=== PATIENT | male | born 1985 ===

== ENCOUNTER 2023-03-19 17:11 | Inpatient (IN) | payer OTHER ==
[~2023-03-19 17:11] MED LIST: Iopamidol-370 76% 500 ML MDV (1 ML CHARGE) ONE
[2023-03-19] MEDS ORDERED: Piperacillin/Tazobactam 3.375 GM VIAL ONE (17:30)
[2023-03-19 17:39] LABS: #Basophils 0.1 thou/uL (0.0-0.2); #Monocytes 1.2 thou/uL (0.11-0.59); #Neutrophils 18.2 thou/uL (1.40-6.50); %Basophils 0.3 % (0.0-1.0); %Eosinophils 0.1 % (0.0-10.0); %Lymphocytes 16.3 % (21.0-51.0); %Monocytes 5.1 % (0.0-10.0); %Neutrophils 77.6 % (42.0-75.0); Hematocrit 41.1 % (42.0-52.0); Hemoglobin 14.4 g/dL (14.0-18.0); Mean Corpuscular Volume 94.1 fl (78.0-98.0); Mean Platelet Volume 8.8 fL (7.4-10.4); Platelet Count 275 10x3/uL (130-400); RBC Distribution Width 12.6 % (11.5-14.5); Red Blood Cell (RBC) Count 4.37 mill/uL (4.70-6.10); White Blood Cell (WBC) Count 23.5 10x3/uL (4.8-10.8)
[2023-03-19 17:46] LABS: Bacteria/HPF None Seen HPF (None Seen); Bilirubin Negative (Negative); Blood, Urine 3+ (Negative); CAUTI Indications for Culture Pelvic or flank pain; Clarity Turbid (Clear); Glucose, Urine (Dipstick) Greater than 1000 mg/dL (Negative); Ketone, Urine Negative (Negative); Leukocyte 25 Leu/uL (Negative); Nitrite Negative (Negative); Protein, Urine (Dipstick) 200 mg/dL (Neg-Trace); RBC/HPF Greater than 50 HPF (0-3); Specific Gravity, Urine 1.021 (1.002-1.036); Squamous Epithelial None Seen HPF (0-3); Urobilinogen Normal mg/dL (Less than 2)
[2023-03-19 17:48] LABS: Urine Culture Reflex No No
[2023-03-19 17:53] LABS: PTT 23.3 sec (22.9-36.1); Prothrombin Time 13.1 sec (12.0-14.7)
[2023-03-19] MEDS ORDERED: Ipratropium/Albuterol 3 ML NEB NEB PRN (17:59)
[2023-03-19] MEDS ORDERED: Morphine 2 MG/ML VIAL SLOW IVP PRN (17:59)
[2023-03-19] MEDS ORDERED: Ondansetron PF 4 MG/2 ML Vial IVP PRN ×3 (17:59→21:29)
[2023-03-19] MEDS ORDERED: Cyclobenzaprine 10 MG TAB PO PRN (18:03)
[2023-03-19] MEDS ORDERED: traMADol HCl 50 MG TAB PO PRN (18:03)
[2023-03-19 18:04] LABS: Acetaminophen Less than 10 mcg/mL (10.0-30.0); Alcohol 292.7 mg/dL (Less than 10); Salicylate Less than 8.0 mg/dL (15.0-30.0)
[2023-03-19 18:05] LABS: ALT (SGPT) 40 U/L (8-55); AST (SGOT) 57 U/L (5-34); Albumin 3.9 g/dL (3.5-5.0); Alkaline Phosphatase 82 U/L (40-110); Anion Gap 20 mmol/L (10-20); BUN (Urea Nitrogen) 18 mg/dL (8.9-20.6); Bilirubin, Total 0.3 mg/dL (0.2-1.2); Calc. Creatinine Clearance 0 mL/min (70-130); Calcium 8.2 mg/dL (7.8-10.44); Carbon Dioxide 20 mmol/L (22-29); Chloride 104 mmol/L (98-107); Estimated GFR 55; Globulin 2.9 g/dL (2.4-3.5); Glucose 152 mg/dL (70-105); Lipase 31 U/L (8-78); Potassium 4.8 mmol/L (3.5-5.1); Protein, Total 6.8 g/dL (6.0-8.3); Sodium 139 mmol/L (136-145)
[2023-03-19] MEDS ORDERED: fentaNYL 50 mcg/mL 1 mL Vial ONE ×5 (18:08→21:51)
[2023-03-19] MEDS ORDERED: SUGAMMADEX SODIUM 200 MG/2 ML VIAL ONE (18:25)
[2023-03-19] MEDS ORDERED: Famotidine/PF 20 mg/2ml Vial ONE (18:25)
[2023-03-19] MEDS ORDERED: NEOSTIGMINE 3 MG/3 ML SYR 3 MG/3 ML SYRINGE ONE (18:42)
[2023-03-19] MEDS ORDERED: PROPOFOL 200 MG/20 ML VIAL ONE (18:42)
[2023-03-19] MEDS ORDERED: Rocuronium Bromide 10 MG/ML (10ML VIAL) ONE (18:42)
[2023-03-19] MEDS ORDERED: Glycopyrrolate 0.2 MG/ML 5 ML SYRINGE ONE (18:42)
[2023-03-19] MEDS ORDERED: Ondansetron PF 4 MG/2 ML Vial ONE (18:42)
[2023-03-19] MEDS ORDERED: Succinylcholine 200 MG/10 ml SYRINGE FS ONE (18:42)
[2023-03-19] MEDS ORDERED: Ketorolac Tromethamine 30 MG/ML VIAL ONE (18:42)
[2023-03-19] MEDS ORDERED: Metoclopramide HCl 10 MG/2 ML VIAL ONE (18:42)
[2023-03-19] MEDS ORDERED: ePHEDrine Sulfate 50 MG/10 ML VIAL ONE (18:42)
[2023-03-19] MEDS ORDERED: Lidocaine 1% PF 5 ML VIAL ONE (18:42)
[2023-03-19] MEDS ORDERED: PHENYLEPHRINE-NS 100 MCG/ML 10 ML SYRINGE ONE (18:42)
[2023-03-19] MEDS ORDERED: Meperidine HCl/PF 25 MG/ML VIAL SLOW IVP PRN (20:59)
[2023-03-19] MEDS ORDERED: Ondansetron HCl/PF 4 MG/2 ML Vial IVP PRN (20:59)
[2023-03-19] MEDS ORDERED: PACU-Morphine 4MG/ML VIAL SLOW IVP PRN (20:59)
[2023-03-19] MEDS ORDERED: Promethazine HCl 25 MG/ML VIAL IM PRN ×3 (20:59→21:29)
[2023-03-19] MEDS ORDERED: diphenhydrAMINE 50 MG/ML VIAL IM PRN ×2 (21:27→21:29)
[2023-03-19] MEDS ORDERED: Naloxone HCl 0.4 mg/ml Vial IV PRN ×2 (21:27→21:29)
[2023-03-19] MEDS ORDERED: HYDROmorphone 10 mg/100 ml CADD IVPB PRN (21:27)
[2023-03-19] MEDS ORDERED: diphenhydrAMINE 25 MG CAP PO PRN (21:29)
[2023-03-19] MEDS ORDERED: FENTANYL 500 MCG/10 ML VIAL 2,000 MCG in Sodium Chloride 0.9% 60 ML IV PRN (21:29)
[2023-03-19] MEDS ORDERED: Communication Order-Pharmacy FS SCH ×2 (21:30)
[2023-03-19] MEDS ORDERED: traMADol HCl 50 MG TAB PO SCH (22:00)
[2023-03-19] MEDS: Acetaminophen 500 MG TAB PO SCH ×2 (23:06→23:14)
[2023-03-19] MEDS: Sodium Chloride 0.9% 1,000 ML IV SCH (23:15)
[2023-03-19] MEDS: Senokot S 8.6-50 MG TAB PO SCH (23:18)
[2023-03-19 23:24] LABS: Lactic Acid 4.1 mmol/L (0.5-2.2)
[2023-03-20 00:25] LABS: Amphetamine Not Detected (NotDetected); Barbiturates Screen Not Detected (NotDetected); Benzodiazepine Screen Not Detected (NotDetected); Cocaine Metabolite Screen Not Detected (NotDetected); Methadone Not Detected (NotDetected); Methamphetamine Not Detected (NotDetected); Opiate Screen Not Detected (NotDetected); Oxycodone Screen Not Detected (NotDetected); Phencyclidine (PCP) Not Detected (NotDetected); THC/Cannabinoid Screen Not Detected (NotDetected); Tricyclic Screen Not Detected (NotDetected)
[2023-03-20] MEDS: Zolpidem Tartrate 5 MG TAB PO PRN ×2 (00:50→20:13)
[2023-03-20 04:16] LABS: #Monocytes 1.3 thou/uL (0.11-0.59); #Neutrophils 8.6 thou/uL (1.40-6.50); %Basophils 0.2 % (0.0-1.0); %Lymphocytes 11.9 % (21.0-51.0); %Monocytes 11.3 % (0.0-10.0); %Neutrophils 76.2 % (42.0-75.0); Hematocrit 38.2 % (42.0-52.0); Hemoglobin 13.4 g/dL (14.0-18.0); Mean Corpuscular HGB CONC 35.1 g/dL (32.0-36.0); Mean Corpuscular Hemoglobin 32.9 pg (27.0-31.0); Mean Corpuscular Volume 93.9 fl (78.0-98.0); Mean Platelet Volume 9.2 fL (7.4-10.4); RBC Distribution Width 13.1 % (11.5-14.5); Red Blood Cell (RBC) Count 4.07 mill/uL (4.70-6.10)
[2023-03-20 04:17] LABS: Platelet Count 155 10x3/uL (130-400)
[2023-03-20 04:18] LABS: White Blood Cell (WBC) Count 11.3 10x3/uL (4.8-10.8)
[2023-03-20 05:16] LABS: Phosphorus 2.9 mg/dL (2.3-4.7)
[2023-03-20 05:18] LABS: Anion Gap 18 mmol/L (10-20); BUN (Urea Nitrogen) 13 mg/dL (8.9-20.6); Calc. Creatinine Clearance 123 mL/min (70-130); Calcium 7.9 mg/dL (7.8-10.44); Carbon Dioxide 15 mmol/L (22-29); Chloride 109 mmol/L (98-107); Estimated GFR 86; Glucose 133 mg/dL (70-105); Magnesium 1.8 mg/dL (1.6-2.6); Potassium 4.4 mmol/L (3.5-5.1); Sodium 138 mmol/L (136-145)
[2023-03-20] MEDS: Acetaminophen 500 MG TAB PO SCH ×4 (07:39→23:13)
[2023-03-20] MEDS: Sodium Chloride 0.9% 1,000 ML IV SCH ×2 (07:39→13:44)
[2023-03-20] MEDS ORDERED: Meperidine HCl/PF 25 MG/ML VIAL SLOW IVP SCH (08:45)
[2023-03-20] MEDS: Famotidine 20 MG TAB PO SCH (09:55)
[2023-03-20] MEDS: Senokot S 8.6-50 MG TAB PO SCH ×2 (09:55→20:32)
[2023-03-20] MEDS: Polyethylene Glycol 3350 17 GM Packet PO SCH (09:55)
[2023-03-20] MEDS: Empagliflozin 10 MG TAB PO SCH (09:55)
[2023-03-20] MEDS: Sacubitril 24MG/Valsartan 26 MG TAB PO SCH ×2 (09:55→20:13)
[2023-03-20] MEDS ORDERED: Sodium Chloride 0.9% 500 ML IV SCH (11:45)
[2023-03-20] MEDS ORDERED: CEFAZOLIN 2 GM in Sodium Chloride 0.9% 100 ML IVPB SCH (12:00)
[2023-03-20] MEDS ORDERED: CEFAZOLIN 2 GM VIAL ONE (12:51)
[2023-03-20] MEDS ORDERED: Sodium Chloride 0.9% 100 ML ONE (12:51)
[2023-03-20] MEDS ORDERED: Fentanyl 250 MCG/5 ML VIAL ONE (14:31)
[2023-03-20] MEDS ORDERED: Midazolam HCl 2 mg/2 ml Vial ONE (14:31)
[2023-03-20] MEDS ORDERED: Ondansetron PF 4 MG/2 ML Vial ONE (15:12)
[2023-03-20] MEDS ORDERED: PROPOFOL 200 MG/20 ML VIAL ONE (15:12)
[2023-03-20] MEDS ORDERED: Ondansetron HCl/PF 4 MG/2 ML Vial IVP PRN (15:41)
[2023-03-20] MEDS ORDERED: HYDROmorphone 2 MG/ML VIAL SLOW IVP PRN (15:41)
[2023-03-20] MEDS ORDERED: Promethazine HCl 25 MG/ML VIAL IM PRN (15:41)
[2023-03-20] MEDS ORDERED: FENTANYL 500 MCG/10 ML VIAL 2,000 MCG in Sodium Chloride 0.9% 60 ML IV PRN (16:19)
[2023-03-20] MEDS: Fentanyl CADD 100 ML IVPB SCH (19:59)
[2023-03-20] MEDS: Metoprolol Tartrate 25 MG TAB PO SCH (21:19)
[2023-03-21] MEDS: Sodium Chloride 0.9% 1,000 ML IV SCH ×4 (01:00→20:30)
[2023-03-21] MEDS: Lorazepam 2 MG/ML VIAL SLOW IVP SCH ×2 (01:53→05:25)
[2023-03-21] MEDS ORDERED: Dexmedetomidine 400 MCG, Admixture Fee 1 EACH in Sodium Chloride 0.9% 96 ML IVPB SCH (03:15)
[2023-03-21 04:09] LABS: #Neutrophils 8.7 thou/uL (1.40-6.50); %Basophils 0.3 % (0.0-1.0); %Eosinophils 0.1 % (0.0-10.0); %Lymphocytes 13.5 % (21.0-51.0); %Monocytes 8.4 % (0.0-10.0); %Neutrophils 77.2 % (42.0-75.0); Hematocrit 30.7 % (42.0-52.0); Mean Corpuscular HGB CONC 33.6 g/dL (32.0-36.0); Mean Platelet Volume 9.5 fL (7.4-10.4); Platelet Count 150 10x3/uL (130-400); RBC Distribution Width 13.1 % (11.5-14.5); Red Blood Cell (RBC) Count 3.12 mill/uL (4.70-6.10); White Blood Cell (WBC) Count 11.3 10x3/uL (4.8-10.8)
[2023-03-21 04:25] LABS: Hemoglobin 10.3 g/dL (14.0-18.0); Mean Corpuscular Volume 98.4 fl (78.0-98.0)
[2023-03-21 04:32] LABS: Anion Gap 16 mmol/L (10-20); BUN (Urea Nitrogen) 11 mg/dL (8.9-20.6); Calc. Creatinine Clearance 132 mL/min (70-130); Calcium 7.9 mg/dL (7.8-10.44); Carbon Dioxide 19 mmol/L (22-29); Chloride 103 mmol/L (98-107); Estimated GFR 94; Glucose 128 mg/dL (70-105); Sodium 134 mmol/L (136-145)
[2023-03-21] MEDS ORDERED: Haloperidol Lactate 5 MG/ML VIAL IM SCH (05:30)
[2023-03-21] MEDS: Acetaminophen 500 MG TAB PO SCH ×3 (06:00→17:54)
[2023-03-21] MEDS: Oxazepam 10 MG CAP PO SCH ×3 (06:45→21:35)
[2023-03-21] MEDS ORDERED: Lorazepam 2 MG/ML VIAL IM PRN (07:04)
[2023-03-21] MEDS ORDERED: Lorazepam 1 MG TAB PO PRN (07:04)
[2023-03-21] MEDS: Famotidine 20 MG TAB PO SCH (09:20)
[2023-03-21] MEDS: Folic Acid 1 MG TAB PO SCH (09:20)
[2023-03-21] MEDS: Empagliflozin 10 MG TAB PO SCH (09:20)
[2023-03-21] MEDS: Senokot S 8.6-50 MG TAB PO SCH ×2 (09:20→20:32)
[2023-03-21] MEDS: Lorazepam 1 MG TAB PO SCH ×3 (09:20→20:31)
[2023-03-21] MEDS: Polyethylene Glycol 3350 17 GM Packet PO SCH (09:20)
[2023-03-21] MEDS: Multivit, Therapeutic 1 TAB PO SCH (09:21)
[2023-03-21] MEDS: Sacubitril 24MG/Valsartan 26 MG TAB PO SCH ×2 (09:21→21:36)
[2023-03-21] MEDS: Thiamine 100 MG TAB PO SCH (09:21)
[2023-03-21] MEDS: Metoprolol Tartrate 25 MG TAB PO SCH ×2 (09:21→20:32)
[2023-03-22] MEDS: Acetaminophen 500 MG TAB PO SCH ×4 (00:46→15:45)
[2023-03-22] MEDS: Lorazepam 1 MG TAB PO SCH ×3 (00:48→14:25)
[2023-03-22] MEDS: Fentanyl CADD 100 ML IVPB SCH (05:22)
[2023-03-22] MEDS: Sodium Chloride 0.9% 1,000 ML IV SCH (05:40)
[2023-03-22] MEDS: Oxazepam 10 MG CAP PO SCH ×2 (05:49→21:22)
[2023-03-22] MEDS ORDERED: Lorazepam 1 MG TAB PO PRN (07:04)
[2023-03-22 08:13] LABS: #Basophils 0.1 thou/uL (0.0-0.2); #Monocytes 0.7 thou/uL (0.11-0.59); #Neutrophils 9.8 thou/uL (1.40-6.50); %Basophils 0.4 % (0.0-1.0); %Eosinophils 0.1 % (0.0-10.0); %Lymphocytes 6.6 % (21.0-51.0); %Monocytes 6.3 % (0.0-10.0); %Neutrophils 85.7 % (42.0-75.0); Hematocrit 28.1 % (42.0-52.0); Hemoglobin 9.1 g/dL (14.0-18.0); Mean Corpuscular HGB CONC 32.4 g/dL (32.0-36.0); Mean Corpuscular Hemoglobin 32.5 pg (27.0-31.0); Mean Corpuscular Volume 100.4 fl (78.0-98.0); Mean Platelet Volume 9.2 fL (7.4-10.4); Platelet Count 165 10x3/uL (130-400); RBC Distribution Width 13.2 % (11.5-14.5); White Blood Cell (WBC) Count 11.5 10x3/uL (4.8-10.8)
[2023-03-22 08:33] LABS: Anion Gap 24 mmol/L (10-20); BUN (Urea Nitrogen) 17 mg/dL (8.9-20.6); Calc. Creatinine Clearance 148 mL/min (70-130); Calcium 8.4 mg/dL (7.8-10.44); Carbon Dioxide 14 mmol/L (22-29); Chloride 104 mmol/L (98-107); Estimated GFR 108; Glucose 125 mg/dL (70-105); Potassium 4.2 mmol/L (3.5-5.1); Sodium 138 mmol/L (136-145)
[2023-03-22] MEDS ORDERED: Pantoprazole 40 MG VIAL IVP SCH (09:00)
[2023-03-22] MEDS ORDERED: Furosemide 40 MG/4 ML VIAL SLOW IVP SCH (10:00)
[2023-03-22] MEDS ORDERED: Lactated Ringer's 1,000 ML IV SCH (10:15)
[2023-03-22] MEDS: Pantoprazole 80 MG, Admixture Fee 1 EACH in Sodium Chloride 0.9% 100 ML IVPB SCH ×3 (11:07→21:25)
[2023-03-22 12:07] LABS: #Monocytes 0.8 thou/uL (0.11-0.59); #Neutrophils 10.7 thou/uL (1.40-6.50); %Basophils 0.3 % (0.0-1.0); %Lymphocytes 5.9 % (21.0-51.0); %Monocytes 6.1 % (0.0-10.0); %Neutrophils 86.7 % (42.0-75.0); Hematocrit 28.4 % (42.0-52.0); Hemoglobin 9.4 g/dL (14.0-18.0); Mean Corpuscular HGB CONC 33.1 g/dL (32.0-36.0); Mean Corpuscular Hemoglobin 33.3 pg (27.0-31.0); Mean Corpuscular Volume 100.7 fl (78.0-98.0); Mean Platelet Volume 9.4 fL (7.4-10.4); Platelet Count 185 10x3/uL (130-400); RBC Distribution Width 13.2 % (11.5-14.5); Red Blood Cell (RBC) Count 2.82 mill/uL (4.70-6.10); White Blood Cell (WBC) Count 12.4 10x3/uL (4.8-10.8)
[2023-03-22] MEDS ORDERED: Lorazepam 2 MG/ML VIAL SLOW IVP SCH (12:49)
[2023-03-22] MEDS: Empagliflozin 10 MG TAB PO SCH (13:03)
[2023-03-22] MEDS: Folic Acid 1 MG TAB PO SCH (13:03)
[2023-03-22] MEDS: Furosemide 40 MG TAB PO SCH (13:03)
[2023-03-22] MEDS: Polyethylene Glycol 3350 17 GM Packet PO SCH (13:04)
[2023-03-22] MEDS: Metoprolol Tartrate 25 MG TAB PO SCH ×2 (13:04→21:22)
[2023-03-22] MEDS: Sacubitril 24MG/Valsartan 26 MG TAB PO SCH ×2 (13:04→21:23)
[2023-03-22] MEDS: Spironolactone 25 MG TAB PO SCH (13:04)
[2023-03-22] MEDS: Multivit, Therapeutic 1 TAB PO SCH (13:04)
[2023-03-22] MEDS: Senokot S 8.6-50 MG TAB PO SCH ×2 (13:04→21:23)
[2023-03-22] MEDS: Thiamine 100 MG TAB PO SCH (13:05)
[2023-03-22] MEDS ORDERED: HYDROmorphone 0.5 MG/0.5 ML SYRINGE SLOW IVP SCH (14:15)
[2023-03-22] MEDS ORDERED: Labetalol HCl 100 MG/20 ML VIAL SLOW IVP PRN ×3 (14:20→16:25)
[2023-03-22] MEDS ORDERED: Metoprolol Tartrate 50 MG TAB PO SCH ×2 (15:30→21:00)
[2023-03-22] MEDS ORDERED: cloNIDine 0.3 MG TAB PO SCH ×3 (15:30→22:00)
[2023-03-22] MEDS: Lactated Ringer's 1,000 ML IV SCH ×2 (16:58→21:28)
[2023-03-22] MEDS ORDERED: Non-Formulary Item 1 EACH (Trazodone Hcl [Trazodone Hcl] 100 MG Tablet) PO SCH (21:00)
[2023-03-22] MEDS: cloNIDine 0.2 MG TAB PO SCH (21:21)
[2023-03-22] MEDS: traZODone HCl 50 MG TAB PO SCH (21:24)
[2023-03-22] MEDS: Zolpidem Tartrate 5 MG TAB PO PRN (21:24)
[2023-03-23] MEDS: Acetaminophen 500 MG TAB PO SCH ×4 (00:05→17:39)
[2023-03-23] MEDS: Fentanyl CADD 100 ML IVPB SCH (01:39)
[2023-03-23] MEDS: cloNIDine 0.2 MG TAB PO SCH ×4 (03:59→20:35)
[2023-03-23] MEDS: Oxazepam 10 MG CAP PO SCH ×3 (05:50→20:35)
[2023-03-23] MEDS ORDERED: Lorazepam 1 MG TAB PO PRN (07:04)
[2023-03-23] MEDS ORDERED: Lorazepam 0.5 MG TAB PO SCH (08:00)
[2023-03-23] MEDS: Folic Acid 1 MG TAB PO SCH (08:56)
[2023-03-23] MEDS: Empagliflozin 10 MG TAB PO SCH (08:56)
[2023-03-23] MEDS: Sacubitril 24MG/Valsartan 26 MG TAB PO SCH ×2 (08:57→20:36)
[2023-03-23] MEDS: Metoprolol Tartrate 25 MG TAB PO SCH ×2 (08:57→20:36)
[2023-03-23] MEDS: Senokot S 8.6-50 MG TAB PO SCH ×2 (08:57→20:37)
[2023-03-23] MEDS: Multivit, Therapeutic 1 TAB PO SCH (08:57)
[2023-03-23] MEDS: Spironolactone 25 MG TAB PO SCH (08:58)
[2023-03-23] MEDS: Thiamine 100 MG TAB PO SCH (08:58)
[2023-03-23] MEDS: Furosemide 40 MG TAB PO SCH (08:58)
[2023-03-23] MEDS: Polyethylene Glycol 3350 17 GM Packet PO SCH (08:58)
[2023-03-23] MEDS: Lactated Ringer's 1,000 ML IV SCH ×2 (08:59→15:53)
[2023-03-23] MEDS: Cyclobenzaprine 10 MG TAB PO SCH ×3 (09:00→20:36)
[2023-03-23 10:10] LABS: #Eosinphils 0.1 thou/uL (0.0-0.7); #Monocytes 0.7 thou/uL (0.11-0.59); #Neutrophils 5.2 thou/uL (1.40-6.50); %Basophils 0.4 % (0.0-1.0); %Eosinophils 1.6 % (0.0-10.0); %Lymphocytes 17.8 % (21.0-51.0); %Monocytes 9.8 % (0.0-10.0); %Neutrophils 69.7 % (42.0-75.0); Hematocrit 22.6 % (42.0-52.0); Hemoglobin 7.5 g/dL (14.0-18.0); Mean Corpuscular HGB CONC 33.2 g/dL (32.0-36.0); Mean Corpuscular Hemoglobin 32.9 pg (27.0-31.0); Mean Corpuscular Volume 99.1 fl (78.0-98.0); Mean Platelet Volume 9.1 fL (7.4-10.4); Platelet Count 155 10x3/uL (130-400); RBC Distribution Width 13.5 % (11.5-14.5); Red Blood Cell (RBC) Count 2.28 mill/uL (4.70-6.10); White Blood Cell (WBC) Count 7.4 10x3/uL (4.8-10.8)
[2023-03-23] MEDS ORDERED: Oxazepam 10 MG CAP PO SCH (10:15)
[2023-03-23 10:46] LABS: Anion Gap 15 mmol/L (10-20); BUN (Urea Nitrogen) 15 mg/dL (8.9-20.6); Calc. Creatinine Clearance 159 mL/min (70-130); Calcium 8.2 mg/dL (7.8-10.44); Carbon Dioxide 24 mmol/L (22-29); Chloride 104 mmol/L (98-107); Estimated GFR 113; Glucose 124 mg/dL (70-105); Magnesium 1.9 mg/dL (1.6-2.6); Potassium 3.6 mmol/L (3.5-5.1); Sodium 139 mmol/L (136-145)
[2023-03-23 11:06] LABS: Phosphorus 1.5 mg/dL (2.3-4.7)
[2023-03-23] MEDS: Pantoprazole 80 MG, Admixture Fee 1 EACH in Sodium Chloride 0.9% 100 ML IVPB SCH (12:08)
[2023-03-23] MEDS ORDERED: Electrolyte Replacement Protocol 1 EACH FS SCH (16:30)
[2023-03-23] MEDS ORDERED: Potassium Phosphate 22 MMOL in Sodium Chloride 0.9% 250 ML 250 ML IVPB SCH (16:45)
[2023-03-23] MEDS: traZODone HCl 50 MG TAB PO SCH (20:36)
[2023-03-24] MEDS ORDERED: Simethicone Chewable 80 MG TAB PO PRN (00:21)
[2023-03-24] MEDS ORDERED: CEFAZOLIN 2 GM in Sodium Chloride 0.9% 100 ML IVPB SCH (00:30)
[2023-03-24] MEDS: Acetaminophen 500 MG TAB PO SCH ×4 (01:02→18:44)
[2023-03-24] MEDS: Metoclopramide HCl 10 MG/2 ML VIAL IVP SCH ×4 (01:03→18:45)
[2023-03-24] MEDS: Fentanyl CADD 100 ML IVPB SCH (01:57)
[2023-03-24] MEDS: cloNIDine 0.2 MG TAB PO SCH ×4 (04:10→21:37)
[2023-03-24] MEDS: Oxazepam 10 MG CAP PO SCH ×3 (04:10→21:36)
[2023-03-24] MEDS: Lactated Ringer's 1,000 ML IV SCH ×2 (04:11→14:43)
[2023-03-24] MEDS ORDERED: Lorazepam 0.5 MG TAB PO PRN (07:04)
[2023-03-24 07:22] LABS: #Eosinphils 0.1 thou/uL (0.0-0.7); #Monocytes 0.9 thou/uL (0.11-0.59); #Neutrophils 5.8 thou/uL (1.40-6.50); %Basophils 0.5 % (0.0-1.0); %Lymphocytes 13.8 % (21.0-51.0); %Monocytes 10.9 % (0.0-10.0); %Neutrophils 71.8 % (42.0-75.0); Hematocrit 23.9 % (42.0-52.0); Mean Corpuscular HGB CONC 33.5 g/dL (32.0-36.0); Mean Corpuscular Hemoglobin 33.5 pg (27.0-31.0); Mean Platelet Volume 8.8 fL (7.4-10.4); Platelet Count 179 10x3/uL (130-400); RBC Distribution Width 13.9 % (11.5-14.5); Red Blood Cell (RBC) Count 2.39 mill/uL (4.70-6.10); White Blood Cell (WBC) Count 8.1 10x3/uL (4.8-10.8)
[2023-03-24 07:52] LABS: ALT (SGPT) 50 U/L (8-55); AST (SGOT) 40 U/L (5-34); Albumin 3.2 g/dL (3.5-5.0); Alkaline Phosphatase 65 U/L (40-110); Anion Gap 22 mmol/L (10-20); BUN (Urea Nitrogen) 10 mg/dL (8.9-20.6); Bilirubin, Total 0.5 mg/dL (0.2-1.2); Calc. Creatinine Clearance 194 mL/min (70-130); Calcium 8.5 mg/dL (7.8-10.44); Carbon Dioxide 20 mmol/L (22-29); Chloride 99 mmol/L (98-107); Estimated GFR 119; Globulin 2.7 g/dL (2.4-3.5); Glucose 109 mg/dL (70-105); Potassium 3.2 mmol/L (3.5-5.1); Protein, Total 5.9 g/dL (6.0-8.3); Sodium 138 mmol/L (136-145)
[2023-03-24] MEDS ORDERED: Magnesium 2 GM/50 ML(in water) 2 GM in Premix Bag 1 BAG IVPB SCH (08:00)
[2023-03-24] MEDS ORDERED: Potassium Chloride 20 MEQ TAB PO SCH (08:15)
[2023-03-24] MEDS: Cyclobenzaprine 10 MG TAB PO SCH ×3 (09:05→21:37)
[2023-03-24] MEDS: Folic Acid 1 MG TAB PO SCH (09:05)
[2023-03-24] MEDS: Empagliflozin 10 MG TAB PO SCH (09:05)
[2023-03-24] MEDS: Furosemide 40 MG TAB PO SCH (09:06)
[2023-03-24] MEDS: Polyethylene Glycol 3350 17 GM Packet PO SCH (09:07)
[2023-03-24] MEDS: Multivit, Therapeutic 1 TAB PO SCH (09:07)
[2023-03-24] MEDS: Sacubitril 24MG/Valsartan 26 MG TAB PO SCH ×2 (09:07→21:36)
[2023-03-24] MEDS: Metoprolol Tartrate 25 MG TAB PO SCH ×2 (09:07→21:36)
[2023-03-24] MEDS: Senokot S 8.6-50 MG TAB PO SCH ×2 (09:07→21:36)
[2023-03-24] MEDS: Pantoprazole 40 MG VIAL IVP SCH (09:07)
[2023-03-24] MEDS: Spironolactone 25 MG TAB PO SCH (09:08)
[2023-03-24] MEDS: Thiamine 100 MG TAB PO SCH (09:08)
[2023-03-24 09:09] LABS: Magnesium 1.8 mg/dL (1.6-2.6); Phosphorus 3.4 mg/dL (2.3-4.7)
[2023-03-24] MEDS ORDERED: Potassium Chloride 20 MEQ in Premix Bag 1 BAG IVPB SCH (10:45)
[2023-03-24] MEDS ORDERED: Bupivacaine PF 0.5% 30 ML VIAL ONE (13:18)
[2023-03-24] MEDS ORDERED: Thrombin 5000 UNITS/5 ML VIAL ONE (13:18)
[2023-03-24] MEDS ORDERED: Bacitracin Zinc Ointment 30 gm TUBE ONE (13:18)
[2023-03-24] MEDS ORDERED: CEFAZOLIN 2 GM VIAL ONE (13:39)
[2023-03-24] MEDS ORDERED: Sodium Chloride 0.9% 100 ML ONE (13:39)
[2023-03-24] MEDS ORDERED: Ropivacaine 0.5% HCl/PF (150 MG/30 ML VIAL) ONE (13:41)
[2023-03-24] MEDS ORDERED: Midazolam HCl 2 mg/2 ml Vial ONE ×3 (13:41→18:09)
[2023-03-24] MEDS ORDERED: fentaNYL 50 mcg/mL 1 mL Vial ONE (13:41)
[2023-03-24] MEDS ORDERED: fentaNYL PF 100 MCG/2 ML SYRINGE ONE (13:57)
[2023-03-24] MEDS ORDERED: Ketamine 50 MG/ML (10ML VIAL) ONE (13:57)
[2023-03-24] MEDS ORDERED: Dexamethasone 20 MG/5 ML VIAL ONE (14:23)
[2023-03-24] MEDS ORDERED: Lidocaine 1% PF 5 ML VIAL ONE (14:23)
[2023-03-24] MEDS ORDERED: PROPOFOL 200 MG/20 ML VIAL ONE (14:23)
[2023-03-24] MEDS ORDERED: Succinylcholine 200 MG/10 ml SYRINGE FS ONE (14:23)
[2023-03-24] MEDS ORDERED: PHENYLEPHRINE-NS 100 MCG/ML 10 ML SYRINGE ONE (14:23)
[2023-03-24] MEDS ORDERED: Metoprolol Tartrate 5 MG/5 ML VIAL ONE (14:23)
[2023-03-24] MEDS ORDERED: Ketorolac Tromethamine 30 MG/ML VIAL ONE (14:23)
[2023-03-24] MEDS ORDERED: Rocuronium Bromide 10 MG/ML (10ML VIAL) ONE (14:23)
[2023-03-24] MEDS ORDERED: Albuterol HFA (OR) 200 PUFF INH ONE (16:51)
[2023-03-24] MEDS ORDERED: Phenylephrine 10 MG/ML VIAL ONE (17:06)
[2023-03-24] MEDS ORDERED: SUGAMMADEX SODIUM 200 MG/2 ML VIAL ONE (17:17)
[2023-03-24] MEDS ORDERED: Ipratropium/Albuterol 3 ML NEB ONE (17:42)
[2023-03-24] MEDS ORDERED: Lorazepam 2 MG/ML VIAL SLOW IVP PRN (19:03)
[2023-03-24] MEDS: Dextrose 5 % And 0.9 % NaCl 1,000 ML IV SCH (20:46)
[2023-03-24] MEDS: diphenhydrAMINE 50 MG/ML VIAL IVP PRN (20:46)
[2023-03-24] MEDS: traZODone HCl 50 MG TAB PO SCH (21:36)
[2023-03-24] MEDS: CEFAZOLIN 2 GM in Sodium Chloride 0.9% 100 ML IVPB SCH (21:54)
[2023-03-25] MEDS: Acetaminophen 500 MG TAB PO SCH ×3 (00:23→12:14)
[2023-03-25] MEDS: Metoclopramide HCl 10 MG/2 ML VIAL IVP SCH ×4 (00:24→18:23)
[2023-03-25] MEDS: diphenhydrAMINE 50 MG/ML VIAL IVP PRN ×3 (00:29→12:15)
[2023-03-25] MEDS: Oxazepam 10 MG CAP PO SCH ×3 (04:12→21:32)
[2023-03-25] MEDS: cloNIDine 0.2 MG TAB PO SCH ×4 (04:12→21:30)
[2023-03-25] MEDS: CEFAZOLIN 2 GM in Sodium Chloride 0.9% 100 ML IVPB SCH ×3 (04:13→14:25)
[2023-03-25 08:09] LABS: #Monocytes 0.9 thou/uL (0.11-0.59); #Neutrophils 7.2 thou/uL (1.40-6.50); %Basophils 0.3 % (0.0-1.0); %Lymphocytes 8.8 % (21.0-51.0); %Neutrophils 78.9 % (42.0-75.0); Hematocrit 25.4 % (42.0-52.0); Hemoglobin 7.7 g/dL (14.0-18.0); Mean Corpuscular HGB CONC 30.3 g/dL (32.0-36.0); Mean Corpuscular Hemoglobin 32.9 pg (27.0-31.0); Mean Corpuscular Volume 108.5 fl (78.0-98.0); Platelet Count 160 10x3/uL (130-400); RBC Distribution Width 15.2 % (11.5-14.5); Red Blood Cell (RBC) Count 2.34 mill/uL (4.70-6.10); White Blood Cell (WBC) Count 9.1 10x3/uL (4.8-10.8)
[2023-03-25 08:36] LABS: ALT (SGPT) 40 U/L (8-55); AST (SGOT) 32 U/L (5-34); Albumin 3.2 g/dL (3.5-5.0); Alkaline Phosphatase 58 U/L (40-110); Anion Gap 21 mmol/L (10-20); BUN (Urea Nitrogen) 11 mg/dL (8.9-20.6); Bilirubin, Total 0.4 mg/dL (0.2-1.2); Calc. Creatinine Clearance 153 mL/min (70-130); Calcium 8.2 mg/dL (7.8-10.44); Carbon Dioxide 16 mmol/L (22-29); Chloride 108 mmol/L (98-107); Estimated GFR 109; Glucose 133 mg/dL (70-105); Protein, Total 6.2 g/dL (6.0-8.3); Sodium 141 mmol/L (136-145)
[2023-03-25] MEDS: Dextrose 5 % And 0.9 % NaCl 1,000 ML IV SCH ×2 (08:48→21:52)
[2023-03-25] MEDS: Thiamine 100 MG TAB PO SCH (08:49)
[2023-03-25] MEDS: Furosemide 40 MG TAB PO SCH (08:49)
[2023-03-25] MEDS: Metoprolol Tartrate 25 MG TAB PO SCH ×2 (08:49→21:32)
[2023-03-25] MEDS: Folic Acid 1 MG TAB PO SCH (08:49)
[2023-03-25] MEDS: Sacubitril 24MG/Valsartan 26 MG TAB PO SCH ×2 (08:49→21:31)
[2023-03-25] MEDS: Multivit, Therapeutic 1 TAB PO SCH (08:49)
[2023-03-25] MEDS: Polyethylene Glycol 3350 17 GM Packet PO SCH (08:49)
[2023-03-25] MEDS: Empagliflozin 10 MG TAB PO SCH (08:50)
[2023-03-25] MEDS: Cyclobenzaprine 10 MG TAB PO SCH ×3 (08:50→21:31)
[2023-03-25] MEDS: Spironolactone 25 MG TAB PO SCH (08:50)
[2023-03-25] MEDS: Senokot S 8.6-50 MG TAB PO SCH ×2 (08:50→21:31)
[2023-03-25] MEDS ORDERED: Pantoprazole 40 MG VIAL IVP SCH ×2 (09:15→21:00)
[2023-03-25] MEDS ORDERED: HumaLOG 300 UNITS/3 ML VIAL SC PRN (09:30)
[2023-03-25] MEDS ORDERED: Glucagon 1 MG/ML KIT IM PRN (09:30)
[2023-03-25] MEDS ORDERED: Dextrose 5% in Water 1,000 ML IV PRN (09:30)
[2023-03-25] MEDS ORDERED: Dextrose 50% Abboject 50 ML SYRINGE IVP PRN (09:30)
[2023-03-25] MEDS: Pantoprazole 40 MG VIAL IVP SCH ×2 (10:03→21:32)
[2023-03-25] MEDS: Fentanyl CADD 100 ML IVPB SCH (10:40)
[2023-03-25] MEDS ORDERED: Piperacillin/Tazobactam 3.375 GM in Sodium Chloride 0.9% 100 ML IVPB SCH (11:00)
[2023-03-25] MEDS: Piperacillin/Tazobactam 3.375 GM in Sodium Chloride 0.9% 100 ML IVPB SCH ×2 (12:26→18:23)
[2023-03-25] MEDS: Neostigmine 0.5 MG in Syringe 0 ML SC SCH (18:23)
[2023-03-25] MEDS: traZODone HCl 50 MG TAB PO SCH (21:31)
[2023-03-25] MEDS: Acetaminophen/Codeine 30-300mg Tablet PO PRN (21:32)
[2023-03-26] MEDS: Metoclopramide HCl 10 MG/2 ML VIAL IVP SCH ×5 (00:25→23:44)
[2023-03-26] MEDS: Neostigmine 0.5 MG in Syringe 0 ML SC SCH ×5 (00:25→23:50)
[2023-03-26] MEDS: Acetaminophen/Codeine 30-300mg Tablet PO PRN ×4 (03:12→23:44)
[2023-03-26] MEDS: Piperacillin/Tazobactam 3.375 GM in Sodium Chloride 0.9% 100 ML IVPB SCH ×3 (03:13→18:29)
[2023-03-26] MEDS: cloNIDine 0.2 MG TAB PO SCH ×4 (03:13→20:35)
[2023-03-26] MEDS: Oxazepam 10 MG CAP PO SCH ×3 (05:49→20:36)
[2023-03-26] MEDS: Polyethylene Glycol 3350 17 GM Packet PO SCH (08:47)
[2023-03-26] MEDS: Pantoprazole 40 MG VIAL IVP SCH ×2 (08:47→20:36)
[2023-03-26] MEDS: Furosemide 40 MG TAB PO SCH (08:47)
[2023-03-26] MEDS: Multivit, Therapeutic 1 TAB PO SCH (08:48)
[2023-03-26] MEDS: Thiamine 100 MG TAB PO SCH (08:48)
[2023-03-26] MEDS: Spironolactone 25 MG TAB PO SCH (08:48)
[2023-03-26] MEDS: Folic Acid 1 MG TAB PO SCH (08:48)
[2023-03-26] MEDS: Sacubitril 24MG/Valsartan 26 MG TAB PO SCH ×2 (08:48→20:36)
[2023-03-26] MEDS: Naloxegol 12.5 MG TAB PO SCH (08:48)
[2023-03-26] MEDS: Metoprolol Tartrate 25 MG TAB PO SCH ×2 (08:48→20:36)
[2023-03-26] MEDS: Cyclobenzaprine 10 MG TAB PO SCH ×3 (08:48→20:36)
[2023-03-26] MEDS: Senokot S 8.6-50 MG TAB PO SCH ×2 (08:48→20:36)
[2023-03-26 09:54] LABS: Hematocrit 20.8 % (42.0-52.0); Hemoglobin 6.7 g/dL (14.0-18.0); Mean Corpuscular HGB CONC 32.2 g/dL (32.0-36.0); Mean Corpuscular Hemoglobin 32.8 pg (27.0-31.0); Platelet Count 201 10x3/uL (130-400); RBC Distribution Width 15.7 % (11.5-14.5); Red Blood Cell (RBC) Count 2.04 mill/uL (4.70-6.10); White Blood Cell (WBC) Count 6.7 10x3/uL (4.8-10.8)
[2023-03-26 09:56] LABS: Delete Auto Diff?? YES; Manual Diff?? YES
[2023-03-26 10:17] LABS: ALT (SGPT) 26 U/L (8-55); AST (SGOT) 19 U/L (5-34); Albumin 2.8 g/dL (3.5-5.0); Alkaline Phosphatase 48 U/L (40-110); Anion Gap 14 mmol/L (10-20); BUN (Urea Nitrogen) 11 mg/dL (8.9-20.6); Bilirubin, Total 0.5 mg/dL (0.2-1.2); Calc. Creatinine Clearance 199 mL/min (70-130); Calcium 7.7 mg/dL (7.8-10.44); Carbon Dioxide 24 mmol/L (22-29); Chloride 104 mmol/L (98-107); Estimated GFR 120; Globulin 2.3 g/dL (2.4-3.5); Glucose 176 mg/dL (70-105); Protein, Total 5.1 g/dL (6.0-8.3); Sodium 139 mmol/L (136-145)
[2023-03-26 10:19] LABS: Anisocytosis SLIGHT = 6-15 cells HPF (0-5); Band 6 % (5-11); Eosinophils 3 % (0-10); Hypochromia SLIGHT = 6-15 cells HPF (0-5); Lymphocytes 11 % (21-51); Macrocytosis SLIGHT = 6-15 cells HPF (0-5); Metamyelocyte 1 % (0-0); Monocytes 3 % (0-10); Myelocyte 3 % (0-0); Neutrophil 72 % (42-75); Ovalocytes SLIGHT = 2-5 cells HPF (0-1); Platelet Adequacy Comment Platelets Normal; Polychromasia SLIGHT = 2-3 cells HPF (0-2); Reactive Lymphocytes 1 % (0-10); Total Cell Count 99
[2023-03-26] MEDS ORDERED: Potassium Chloride 20 MEQ TAB PO SCH (11:00)
[2023-03-26] MEDS: Dextrose 5 % And 0.9 % NaCl 1,000 ML IV SCH (11:31)
[2023-03-26] MEDS: traZODone HCl 50 MG TAB PO SCH (20:35)
[2023-03-27] MEDS: cloNIDine 0.2 MG TAB PO SCH ×4 (03:37→20:56)
[2023-03-27] MEDS: Piperacillin/Tazobactam 3.375 GM in Sodium Chloride 0.9% 100 ML IVPB SCH (03:37)
[2023-03-27] MEDS: Oxazepam 10 MG CAP PO SCH ×3 (04:05→21:07)
[2023-03-27] MEDS: Neostigmine 0.5 MG in Syringe 0 ML SC SCH (05:10)
[2023-03-27] MEDS: Dextrose 5 % And 0.9 % NaCl 1,000 ML IV SCH (05:10)
[2023-03-27 06:20] LABS: #Eosinphils 0.1 thou/uL (0.0-0.7); #Monocytes 0.5 thou/uL (0.11-0.59); #Neutrophils 3.8 thou/uL (1.40-6.50); %Basophils 0.4 % (0.0-1.0); %Eosinophils 1.8 % (0.0-10.0); %Lymphocytes 17.7 % (21.0-51.0); %Monocytes 8.1 % (0.0-10.0); %Neutrophils 67.3 % (42.0-75.0); Hemoglobin 7.4 g/dL (14.0-18.0); Mean Corpuscular HGB CONC 32.2 g/dL (32.0-36.0); Mean Corpuscular Hemoglobin 31.6 pg (27.0-31.0); Platelet Count 188 10x3/uL (130-400); RBC Distribution Width 17.1 % (11.5-14.5); Red Blood Cell (RBC) Count 2.34 mill/uL (4.70-6.10); White Blood Cell (WBC) Count 5.6 10x3/uL (4.8-10.8)
[2023-03-27 06:28] LABS: Mean Corpuscular Volume 98.3 fl (78.0-98.0)
[2023-03-27 06:40] LABS: Anion Gap 15 mmol/L (10-20); BUN (Urea Nitrogen) 8 mg/dL (8.9-20.6); Calc. Creatinine Clearance 221 mL/min (70-130); Calcium 7.6 mg/dL (7.8-10.44); Carbon Dioxide 23 mmol/L (22-29); Chloride 102 mmol/L (98-107); Estimated GFR 124; Glucose 100 mg/dL (70-105); Magnesium 1.7 mg/dL (1.6-2.6); Phosphorus 2.6 mg/dL (2.3-4.7); Sodium 137 mmol/L (136-145)
[2023-03-27 06:41] LABS: Potassium 2.6 mmol/L (3.5-5.1)
[2023-03-27] MEDS: Naloxegol 12.5 MG TAB PO SCH (06:41)
[2023-03-27] MEDS: Acetaminophen/Codeine 30-300mg Tablet PO PRN ×3 (06:41→17:58)
[2023-03-27] MEDS: Metoclopramide HCl 10 MG/2 ML VIAL IVP SCH ×3 (06:41→18:47)
[2023-03-27] MEDS ORDERED: KCL IV SCH ×2 (07:44→08:00)
[2023-03-27] MEDS ORDERED: 1/2 NS W IV SCH ×2 (07:44→08:00)
[2023-03-27] MEDS ORDERED: D5 IV SCH ×2 (07:44→08:00)
[2023-03-27] MEDS ORDERED: Magnesium 2 GM/50 ML(in water) 2 GM in Premix Bag 1 BAG IVPB SCH ×2 (08:00→09:00)
[2023-03-27] MEDS: Sacubitril 24MG/Valsartan 26 MG TAB PO SCH ×2 (09:03→20:57)
[2023-03-27] MEDS: Furosemide 40 MG TAB PO SCH (09:04)
[2023-03-27] MEDS: Folic Acid 1 MG TAB PO SCH (09:04)
[2023-03-27] MEDS: Multivit, Therapeutic 1 TAB PO SCH (09:04)
[2023-03-27] MEDS: Cyclobenzaprine 10 MG TAB PO SCH ×3 (09:04→20:57)
[2023-03-27] MEDS: Spironolactone 25 MG TAB PO SCH (09:04)
[2023-03-27] MEDS: Thiamine 100 MG TAB PO SCH (09:04)
[2023-03-27] MEDS: Metoprolol Tartrate 25 MG TAB PO SCH ×2 (09:05→20:56)
[2023-03-27] MEDS: Pantoprazole 40 MG VIAL IVP SCH ×2 (09:07→20:55)
[2023-03-27] MEDS: Polyethylene Glycol 3350 17 GM Packet PO SCH (09:07)
[2023-03-27] MEDS: Senokot S 8.6-50 MG TAB PO SCH ×2 (09:07→20:56)
[2023-03-27] MEDS: Potassium Chloride 20 MEQ TAB PO SCH ×2 (09:19→18:46)
[2023-03-27 15:33] LABS: Anion Gap 12 mmol/L (10-20); BUN (Urea Nitrogen) 7 mg/dL (8.9-20.6); Calc. Creatinine Clearance 222 mL/min (70-130); Calcium 7.6 mg/dL (7.8-10.44); Carbon Dioxide 28 mmol/L (22-29); Chloride 100 mmol/L (98-107); Estimated GFR 120; Glucose 105 mg/dL (70-105); Potassium 2.8 mmol/L (3.5-5.1); Sodium 137 mmol/L (136-145)
[2023-03-27] MEDS: D5 1/2 NS w/40 mEq KCL 1,000 ML IV SCH (15:41)
[2023-03-27] MEDS: traZODone HCl 50 MG TAB PO SCH (20:57)
[2023-03-28] MEDS: Metoclopramide HCl 10 MG/2 ML VIAL IVP SCH ×5 (00:01→23:01)
[2023-03-28] MEDS: Acetaminophen/Codeine 30-300mg Tablet PO PRN ×6 (00:01→23:02)
[2023-03-28] MEDS: D5 1/2 NS w/40 mEq KCL 1,000 ML IV SCH ×2 (00:16→04:09)
[2023-03-28] MEDS: Oxazepam 10 MG CAP PO SCH ×3 (04:04→20:38)
[2023-03-28] MEDS: cloNIDine 0.2 MG TAB PO SCH ×4 (04:04→20:39)
[2023-03-28 06:29] LABS: Anion Gap 11 mmol/L (10-20); BUN (Urea Nitrogen) 5 mg/dL (8.9-20.6); Calc. Creatinine Clearance 222 mL/min (70-130); Carbon Dioxide 26 mmol/L (22-29); Chloride 101 mmol/L (98-107); Estimated GFR 120; Glucose 127 mg/dL (70-105); Potassium 2.7 mmol/L (3.5-5.1); Sodium 135 mmol/L (136-145)
[2023-03-28] MEDS: Naloxegol 12.5 MG TAB PO SCH (06:32)
[2023-03-28] MEDS: Potassium Chloride 20 MEQ in Premix Bag 1 BAG IVPB SCH ×2 (06:48→09:58)
[2023-03-28] MEDS ORDERED: Potassium Chloride 20 MEQ TAB PO SCH (08:00)
[2023-03-28] MEDS: Thiamine 100 MG TAB PO SCH (09:51)
[2023-03-28] MEDS: Sacubitril 24MG/Valsartan 26 MG TAB PO SCH ×2 (09:51→20:39)
[2023-03-28] MEDS: Metoprolol Tartrate 25 MG TAB PO SCH ×2 (09:51→20:38)
[2023-03-28] MEDS: Folic Acid 1 MG TAB PO SCH (09:51)
[2023-03-28] MEDS: Furosemide 40 MG TAB PO SCH (09:51)
[2023-03-28] MEDS: Spironolactone 25 MG TAB PO SCH (09:51)
[2023-03-28] MEDS: Multivit, Therapeutic 1 TAB PO SCH (09:51)
[2023-03-28] MEDS: Potassium Chloride 20 MEQ TAB PO SCH (09:51)
[2023-03-28] MEDS: Cyclobenzaprine 10 MG TAB PO SCH ×3 (09:52→20:38)
[2023-03-28] MEDS: Pantoprazole 40 MG VIAL IVP SCH ×2 (09:53→20:38)
[2023-03-28] MEDS: Polyethylene Glycol 3350 17 GM Packet PO SCH (09:53)
[2023-03-28] MEDS: Senokot S 8.6-50 MG TAB PO SCH ×2 (10:07→20:39)
[2023-03-28] MEDS: traZODone HCl 50 MG TAB PO SCH (20:39)
[2023-03-29] MEDS: Acetaminophen/Codeine 30-300mg Tablet PO PRN ×3 (03:08→11:01)
[2023-03-29] MEDS: cloNIDine 0.2 MG TAB PO SCH ×3 (03:08→15:23)
[2023-03-29] MEDS: Naloxegol 12.5 MG TAB PO SCH (06:25)
[2023-03-29] MEDS: Oxazepam 10 MG CAP PO SCH ×3 (06:25→20:33)
[2023-03-29] MEDS: Metoclopramide HCl 10 MG/2 ML VIAL IVP SCH ×4 (06:25→23:33)
[2023-03-29] MEDS: Thiamine 100 MG TAB PO SCH (08:08)
[2023-03-29] MEDS: Metoprolol Tartrate 25 MG TAB PO SCH ×2 (08:08→20:32)
[2023-03-29] MEDS: Multivit, Therapeutic 1 TAB PO SCH (08:08)
[2023-03-29] MEDS: Potassium Chloride 20 MEQ TAB PO SCH (08:09)
[2023-03-29] MEDS: Furosemide 40 MG TAB PO SCH (08:09)
[2023-03-29] MEDS: Sacubitril 24MG/Valsartan 26 MG TAB PO SCH ×2 (08:09→20:32)
[2023-03-29] MEDS: Spironolactone 25 MG TAB PO SCH (08:09)
[2023-03-29] MEDS: Cyclobenzaprine 10 MG TAB PO SCH ×3 (08:09→20:32)
[2023-03-29] MEDS: Folic Acid 1 MG TAB PO SCH (08:09)
[2023-03-29] MEDS: Pantoprazole 40 MG VIAL IVP SCH ×2 (08:10→20:36)
[2023-03-29] MEDS: Polyethylene Glycol 3350 17 GM Packet PO SCH (08:10)
[2023-03-29] MEDS: Senokot S 8.6-50 MG TAB PO SCH ×2 (08:10→20:36)
[2023-03-29 08:40] LABS: #Eosinphils 0.1 thou/uL (0.0-0.7); #Monocytes 0.6 thou/uL (0.11-0.59); #Neutrophils 6.3 thou/uL (1.40-6.50); %Basophils 0.1 % (0.0-1.0); %Eosinophils 1.1 % (0.0-10.0); %Lymphocytes 10.4 % (21.0-51.0); %Monocytes 7.1 % (0.0-10.0); %Neutrophils 80.5 % (42.0-75.0); Hematocrit 26.9 % (42.0-52.0); Hemoglobin 8.8 g/dL (14.0-18.0); Mean Corpuscular HGB CONC 32.7 g/dL (32.0-36.0); Mean Corpuscular Hemoglobin 31.9 pg (27.0-31.0); Mean Corpuscular Volume 97.5 fl (78.0-98.0); Mean Platelet Volume 9.1 fL (7.4-10.4); Platelet Count 235 10x3/uL (130-400); RBC Distribution Width 16.8 % (11.5-14.5); Red Blood Cell (RBC) Count 2.76 mill/uL (4.70-6.10); White Blood Cell (WBC) Count 7.9 10x3/uL (4.8-10.8)
[2023-03-29 09:03] LABS: ALT (SGPT) 20 U/L (8-55); AST (SGOT) 20 U/L (5-34); Albumin 2.8 g/dL (3.5-5.0); Alkaline Phosphatase 73 U/L (40-110); Anion Gap 11 mmol/L (10-20); BUN (Urea Nitrogen) 7 mg/dL (8.9-20.6); Bilirubin, Total 0.6 mg/dL (0.2-1.2); Calc. Creatinine Clearance 192 mL/min (70-130); Calcium 8.5 mg/dL (7.8-10.44); Carbon Dioxide 28 mmol/L (22-29); Chloride 101 mmol/L (98-107); Estimated GFR 119; Globulin 2.5 g/dL (2.4-3.5); Glucose 119 mg/dL (70-105); Magnesium 1.7 mg/dL (1.6-2.6); Phosphorus 4.2 mg/dL (2.3-4.7); Potassium 3.4 mmol/L (3.5-5.1); Protein, Total 5.3 g/dL (6.0-8.3); Sodium 137 mmol/L (136-145)
[2023-03-29] MEDS ORDERED: Potassium Chloride 40 MEQ in Premix Bag 1 BAG IVPB SCH (11:30)
[2023-03-29] MEDS: HYDROcodone/Acetaminophen 5/325 mg Tablet PO SCH ×3 (12:59→23:01)
[2023-03-29] MEDS ORDERED: Magnesium 2 GM/50 ML(in water) 2 GM in Premix Bag 1 BAG IVPB SCH (13:00)
[2023-03-29] MEDS: Potassium Chloride 20 MEQ in Premix Bag 1 BAG IVPB SCH ×2 (13:00→15:23)
[2023-03-29] MEDS: HYDROcodone/Acetaminophen 5/325 mg Tablet PO PRN ×2 (17:36→23:02)
[2023-03-29] MEDS: traZODone HCl 50 MG TAB PO SCH (20:33)
[2023-03-29] MEDS: cloNIDine 0.1 MG TAB PO SCH (20:35)
[2023-03-30] MEDS ORDERED: Loperamide HCl 2 MG CAP PO PRN (04:09)
[2023-03-30] MEDS: cloNIDine 0.1 MG TAB PO SCH ×4 (04:15→20:51)
[2023-03-30] MEDS: Oxazepam 10 MG CAP PO SCH ×3 (04:15→20:53)
[2023-03-30] MEDS: Metoclopramide HCl 10 MG/2 ML VIAL IVP SCH (05:19)
[2023-03-30] MEDS: HYDROcodone/Acetaminophen 5/325 mg Tablet PO PRN ×4 (05:20→23:04)
[2023-03-30] MEDS: HYDROcodone/Acetaminophen 5/325 mg Tablet PO SCH ×4 (05:20→23:04)
[2023-03-30] MEDS: Naloxegol 12.5 MG TAB PO SCH (06:15)
[2023-03-30] MEDS: Multivit, Therapeutic 1 TAB PO SCH (08:45)
[2023-03-30] MEDS: Sacubitril 24MG/Valsartan 26 MG TAB PO SCH ×2 (08:45→20:51)
[2023-03-30] MEDS: Spironolactone 25 MG TAB PO SCH (08:45)
[2023-03-30] MEDS: Potassium Chloride 20 MEQ TAB PO SCH (08:45)
[2023-03-30] MEDS: Furosemide 40 MG TAB PO SCH (08:45)
[2023-03-30] MEDS: Pantoprazole 40 MG VIAL IVP SCH ×2 (08:46→20:52)
[2023-03-30] MEDS: Polyethylene Glycol 3350 17 GM Packet PO SCH (08:46)
[2023-03-30] MEDS: Metoprolol Tartrate 25 MG TAB PO SCH ×2 (08:46→20:51)
[2023-03-30] MEDS: Senokot S 8.6-50 MG TAB PO SCH ×2 (08:46→20:50)
[2023-03-30] MEDS: Thiamine 100 MG TAB PO SCH (08:46)
[2023-03-30] MEDS: Folic Acid 1 MG TAB PO SCH (08:46)
[2023-03-30] MEDS: Cyclobenzaprine 10 MG TAB PO SCH ×3 (08:46→20:51)
[2023-03-30 10:04] LABS: #Eosinphils 0.1 thou/uL (0.0-0.7); #Monocytes 0.7 thou/uL (0.11-0.59); #Neutrophils 5.9 thou/uL (1.40-6.50); %Basophils 0.1 % (0.0-1.0); %Eosinophils 1.2 % (0.0-10.0); %Lymphocytes 11.2 % (21.0-51.0); %Monocytes 9.5 % (0.0-10.0); %Neutrophils 77.1 % (42.0-75.0); Hemoglobin 9.1 g/dL (14.0-18.0); Mean Corpuscular HGB CONC 32.5 g/dL (32.0-36.0); Mean Corpuscular Volume 98.6 fl (78.0-98.0); Mean Platelet Volume 9.3 fL (7.4-10.4); Platelet Count 253 10x3/uL (130-400); RBC Distribution Width 16.5 % (11.5-14.5); Red Blood Cell (RBC) Count 2.84 mill/uL (4.70-6.10); White Blood Cell (WBC) Count 7.6 10x3/uL (4.8-10.8)
[2023-03-30 11:05] LABS: Potassium 3.9 mmol/L (3.5-5.1); Sodium 134 mmol/L (136-145)
[2023-03-30 11:06] LABS: ALT (SGPT) 21 U/L (8-55); AST (SGOT) 23 U/L (5-34); Albumin 2.7 g/dL (3.5-5.0); Alkaline Phosphatase 101 U/L (40-110); Anion Gap 12 mmol/L (10-20); BUN (Urea Nitrogen) 9 mg/dL (8.9-20.6); Bilirubin, Total 0.5 mg/dL (0.2-1.2); Calc. Creatinine Clearance 188 mL/min (70-130); Calcium 8.1 mg/dL (7.6-10.4); Carbon Dioxide 25 mmol/L (22-29); Chloride 101 mmol/L (98-107); Estimated GFR 119; Globulin 2.6 g/dL (2.4-3.5); Glucose 116 mg/dL (70-105); Protein, Total 5.3 g/dL (6.0-8.3)
[2023-03-30] MEDS: traZODone HCl 50 MG TAB PO SCH (20:52)
[2023-03-31] MEDS: cloNIDine 0.1 MG TAB PO SCH ×4 (03:12→21:58)
[2023-03-31] MEDS: Oxazepam 10 MG CAP PO SCH ×3 (05:19→21:58)
[2023-03-31] MEDS: HYDROcodone/Acetaminophen 5/325 mg Tablet PO PRN ×3 (05:19→16:45)
[2023-03-31] MEDS: HYDROcodone/Acetaminophen 5/325 mg Tablet PO SCH ×3 (05:19→16:45)
[2023-03-31] MEDS: Naloxegol 12.5 MG TAB PO SCH (06:49)
[2023-03-31] MEDS: Cyclobenzaprine 10 MG TAB PO SCH ×3 (08:31→21:58)
[2023-03-31] MEDS: Folic Acid 1 MG TAB PO SCH (08:31)
[2023-03-31] MEDS: Thiamine 100 MG TAB PO SCH (08:31)
[2023-03-31] MEDS: Furosemide 40 MG TAB PO SCH (08:31)
[2023-03-31] MEDS: Sacubitril 24MG/Valsartan 26 MG TAB PO SCH ×2 (08:32→21:58)
[2023-03-31] MEDS: Polyethylene Glycol 3350 17 GM Packet PO SCH (08:32)
[2023-03-31] MEDS: Spironolactone 25 MG TAB PO SCH (08:32)
[2023-03-31] MEDS: Potassium Chloride 20 MEQ TAB PO SCH (08:32)
[2023-03-31] MEDS: Pantoprazole 40 MG VIAL IVP SCH ×2 (08:32→21:59)
[2023-03-31] MEDS: Multivit, Therapeutic 1 TAB PO SCH (08:32)
[2023-03-31] MEDS: Metoprolol Tartrate 25 MG TAB PO SCH ×2 (08:32→21:58)
[2023-03-31] MEDS: Senokot S 8.6-50 MG TAB PO SCH ×2 (08:33→21:59)
[2023-03-31 09:00] LABS: #Eosinphils 0.1 thou/uL (0.0-0.7); #Monocytes 0.8 thou/uL (0.11-0.59); #Neutrophils 4.5 thou/uL (1.40-6.50); %Basophils 0.2 % (0.0-1.0); %Eosinophils 1.4 % (0.0-10.0); %Lymphocytes 17.4 % (21.0-51.0); %Neutrophils 67.3 % (42.0-75.0); Hemoglobin 9.1 g/dL (14.0-18.0); Mean Corpuscular HGB CONC 32.5 g/dL (32.0-36.0); Mean Corpuscular Hemoglobin 31.8 pg (27.0-31.0); Mean Corpuscular Volume 97.9 fl (78.0-98.0); Mean Platelet Volume 9.2 fL (7.4-10.4); Platelet Count 270 10x3/uL (130-400); RBC Distribution Width 15.9 % (11.5-14.5); Red Blood Cell (RBC) Count 2.86 mill/uL (4.70-6.10); White Blood Cell (WBC) Count 6.6 10x3/uL (4.8-10.8)
[2023-03-31 09:30] LABS: ALT (SGPT) 20 U/L (8-55); AST (SGOT) 21 U/L (5-34); Alkaline Phosphatase 128 U/L (40-110); Anion Gap 13 mmol/L (10-20); BUN (Urea Nitrogen) 8 mg/dL (8.9-20.6); Bilirubin, Total 0.4 mg/dL (0.2-1.2); Calc. Creatinine Clearance 177 mL/min (70-130); Calcium 8.3 mg/dL (7.8-10.44); Carbon Dioxide 24 mmol/L (22-29); Chloride 101 mmol/L (98-107); Estimated GFR 116; Globulin 2.5 g/dL (2.4-3.5); Glucose 111 mg/dL (70-105); Potassium 4.1 mmol/L (3.5-5.1); Protein, Total 5.5 g/dL (6.0-8.3); Sodium 134 mmol/L (136-145)
[2023-03-31] MEDS: Gabapentin 400 MG CAP PO SCH ×3 (09:33→21:58)
[2023-03-31] MEDS: traZODone HCl 50 MG TAB PO SCH (21:58)
[2023-04-01] MEDS: HYDROcodone/Acetaminophen 5/325 mg Tablet PO SCH ×3 (01:13→17:36)
[2023-04-01] MEDS: HYDROcodone/Acetaminophen 5/325 mg Tablet PO PRN ×3 (01:13→17:37)
[2023-04-01] MEDS: cloNIDine 0.1 MG TAB PO SCH (03:43)
[2023-04-01] MEDS: Oxazepam 10 MG CAP PO SCH ×2 (05:18→14:26)
[2023-04-01] MEDS: Naloxegol 12.5 MG TAB PO SCH (05:18)
[2023-04-01] MEDS: Sacubitril 24MG/Valsartan 26 MG TAB PO SCH ×2 (10:04→21:21)
[2023-04-01] MEDS: Gabapentin 400 MG CAP PO SCH ×3 (10:04→21:21)
[2023-04-01] MEDS: Pantoprazole 40 MG VIAL IVP SCH (10:04)
[2023-04-01] MEDS: Furosemide 40 MG TAB PO SCH (10:05)
[2023-04-01] MEDS: Cyclobenzaprine 10 MG TAB PO SCH ×3 (10:05→21:23)
[2023-04-01] MEDS: Spironolactone 25 MG TAB PO SCH (10:06)
[2023-04-01] MEDS: Metoprolol Tartrate 25 MG TAB PO SCH ×2 (10:06→21:21)
[2023-04-01] MEDS: Folic Acid 1 MG TAB PO SCH (10:06)
[2023-04-01] MEDS: Multivit, Therapeutic 1 TAB PO SCH (10:06)
[2023-04-01] MEDS: Senokot S 8.6-50 MG TAB PO SCH ×2 (10:06→21:21)
[2023-04-01] MEDS: Thiamine 100 MG TAB PO SCH (10:06)
[2023-04-01] MEDS: Potassium Chloride 20 MEQ TAB PO SCH (10:07)
[2023-04-01] MEDS: Polyethylene Glycol 3350 17 GM Packet PO SCH (10:07)
[2023-04-01 18:26] LABS: #Eosinphils 0.1 thou/uL (0.0-0.7); #Monocytes 1.1 thou/uL (0.11-0.59); #Neutrophils 6.3 thou/uL (1.40-6.50); %Basophils 0.2 % (0.0-1.0); %Lymphocytes 14.5 % (21.0-51.0); %Neutrophils 71.1 % (42.0-75.0); Hemoglobin 9.3 g/dL (14.0-18.0); Mean Corpuscular HGB CONC 33.2 g/dL (32.0-36.0); Mean Corpuscular Hemoglobin 31.8 pg (27.0-31.0); Mean Corpuscular Volume 95.9 fl (78.0-98.0); Mean Platelet Volume 9.3 fL (7.4-10.4); Platelet Count 323 10x3/uL (130-400); RBC Distribution Width 15.9 % (11.5-14.5); Red Blood Cell (RBC) Count 2.92 mill/uL (4.70-6.10); White Blood Cell (WBC) Count 8.8 10x3/uL (4.8-10.8)
[2023-04-01 18:52] LABS: ALT (SGPT) 17 U/L (8-55); AST (SGOT) 17 U/L (5-34); Alkaline Phosphatase 157 U/L (40-110); Anion Gap 10 mmol/L (10-20); BUN (Urea Nitrogen) 9 mg/dL (8.9-20.6); Bilirubin, Total 0.5 mg/dL (0.2-1.2); Calc. Creatinine Clearance 157 mL/min (70-130); Calcium 8.2 mg/dL (7.8-10.44); Carbon Dioxide 28 mmol/L (22-29); Chloride 96 mmol/L (98-107); Estimated GFR 112; Globulin 2.6 g/dL (2.4-3.5); Glucose 116 mg/dL (70-105); Potassium 3.7 mmol/L (3.5-5.1); Protein, Total 5.6 g/dL (6.0-8.3); Sodium 130 mmol/L (136-145)
[2023-04-01] MEDS: traZODone HCl 50 MG TAB PO SCH (21:30)
[2023-04-02] MEDS: HYDROcodone/Acetaminophen 5/325 mg Tablet PO SCH ×2 (00:45→09:16)
[2023-04-02] MEDS: HYDROcodone/Acetaminophen 5/325 mg Tablet PO PRN ×2 (00:58→09:17)
[2023-04-02] MEDS: Cyclobenzaprine 10 MG TAB PO SCH (09:16)
[2023-04-02] MEDS: Naloxegol 12.5 MG TAB PO SCH (09:16)
[2023-04-02] MEDS: Thiamine 100 MG TAB PO SCH (09:16)
[2023-04-02] MEDS: Multivit, Therapeutic 1 TAB PO SCH (09:16)
[2023-04-02] MEDS: Sacubitril 24MG/Valsartan 26 MG TAB PO SCH (09:16)
[2023-04-02] MEDS: Potassium Chloride 20 MEQ TAB PO SCH (09:18)
[2023-04-02] MEDS: Spironolactone 25 MG TAB PO SCH (09:18)
[2023-04-02] MEDS: Furosemide 40 MG TAB PO SCH (09:18)
[2023-04-02] MEDS: Folic Acid 1 MG TAB PO SCH (09:18)
[2023-04-02] MEDS: Metoprolol Tartrate 25 MG TAB PO SCH (09:18)
[2023-04-02] MEDS: Senokot S 8.6-50 MG TAB PO SCH (09:18)
[2023-04-02] MEDS: Gabapentin 400 MG CAP PO SCH (09:19)
[2023-04-02] MEDS: Polyethylene Glycol 3350 17 GM Packet PO SCH (09:19)
[2023-04-02 11:58] VITALS: BP 130/79; TEMP 98.3
[2023-04-02 12:00] VITALS: BMI 31.2
== END 2023-04-02 13:40 | disposition home or self-care (01) | DRG 653 ==
LOC: EDBD 17:11 → ERS 17:11 → SDC/OP 18:31 → IMCU/EMU 22:42 → SURG A 03-26 17:09
PROVIDERS: ADMIT Specialist; ATTEND Specialist
PROC: 0TQB0ZZ Repair Bladder, Open Approach (ICD-10-PCS; principal; 2023-03-19)
PROC: 0WQF0ZZ Repair Abdominal Wall, Open Approach (ICD-10-PCS; 2023-03-19)
PROC: 0T9B70Z Drainage of Bladder with Drainage Device, Via Natural or Artificial Opening (ICD-10-PCS; 2023-03-19)
PROC: 30233N1 Transfusion of Nonautologous Red Blood Cells into Peripheral Vein, Percutaneous Approach (ICD-10-PCS; 2023-03-19)
PROC: 0PSQ04Z Reposition Left Metacarpal with Internal Fixation Device, Open Approach (ICD-10-PCS; 2023-03-20)
PROC: 2W3DX1Z Immobilization of Left Lower Arm using Splint (ICD-10-PCS; 2023-03-20)
PROC: 2W3QX1Z Immobilization of Right Lower Leg using Splint (ICD-10-PCS; 2023-03-20)
PROC: HZ2ZZZZ Detoxification Services for Substance Abuse Treatment (ICD-10-PCS; 2023-03-21)
DX: S37.23XA Laceration of bladder, initial encounter (principal); J69.0 Pneumonitis due to inhalation of food and vomit; D62 Acute posthemorrhagic anemia; S32.019A Unspecified fracture of first lumbar vertebra, initial encounter for closed fracture; S32.029A Unspecified fracture of second lumbar vertebra, initial encounter for closed fracture; I42.8 Other cardiomyopathies; K56.7 Ileus, unspecified; F10.239 Alcohol dependence with withdrawal, unspecified; S37.29XA Other injury of bladder, initial encounter; R31.9 Hematuria, unspecified; S30.1XXA Contusion of abdominal wall, initial encounter; I50.9 Heart failure, unspecified; D64.9 Anemia, unspecified; F17.298 Nicotine dependence, other tobacco product, with other nicotine-induced disorders; V43.92XA Unspecified car occupant injured in collision with other type car in traffic accident, initial encounter; S62.002A Unspecified fracture of navicular [scaphoid] bone of left wrist, initial encounter for closed fracture; S92.001A Unspecified fracture of right calcaneus, initial encounter for closed fracture; Z98.890 Other specified postprocedural states; Z95.0 Presence of cardiac pacemaker; F10.229 Alcohol dependence with intoxication, unspecified; E87.6 Hypokalemia; Y90.8 Blood alcohol level of 240 mg/100 ml or more
CPT/HCPCS: 36415; 36416; 36430; 70450; 71045; 71260; 72125; 72170; 72193; 74018; 74019; 74177; 76377; 80048; 80053; 80306; 80307; 81001; 82010; 82570; 83605; 83690; 83735; 83880; 84100; 85025; 85610; 85730; 86850; 86900; 86901; 93005; 93010; 93306; 93970; 94640; 96361; 96365; 96375; 97139; C1713; C1750; C1776; C1894; C9113; G0390; J1100; J1170; J1200; J1630; J1650; J1885; J1940; J2060; J2175; J2250; J2370; J2405; J2543; J2704; J2710; J2765; J2795; J3010; J3475; J3480; J3490; J7030; J7042; J7050; J7120; J7611; J7620; P9016; Q9967; S0020; S0028